=== PATIENT | male | born 1935 | race Caucasian/White ===

== ENCOUNTER 2018-12-14 08:06 | Inpatient (IN) ==
[2018-12-08 15:32] LABS: Basophils # (Auto) 0 K/mcL (0.0-0.3); Basophils % (Auto) 0.3 % (0.0-2.0); Eosinophils # (Auto) 0.2 K/mcL (0.0-0.7); Eosinophils % (Auto) 3.5 % (0.0-7.0); Granulocytes % (Auto) 64.3 % (38.0-78.0); Hematocrit 31.4 % (41.0-55.0); Hemoglobin 10.5 g/dL (13.5-16.5); Lymphocytes # (Auto) 1.3 K/mcL (1.5-4.8); Mean Cell Volume 91.6 fL (80.0-100.0); Mean Corpuscular HGB Conc 33.5 g/dL (31.0-36.0); Mean Platelet Volume 9.3 fL (7.4-10.4); Monocytes # (Auto) 0.5 K/mcL (0.1-0.9); Monocytes % (Auto) 8.9 % (1.0-12.0); Platelet Count 140 K/mcL (140-440); RBC 3.42 M/mcL (4.50-5.90); Red Cell Distribution Width 13.7 % (11.5-14.5); WBC 5.6 K/mcL (4.5-11.0)
[2018-12-08 15:49] LABS: Estimated Average Glucose(eAG) 137 mg/dL; Hemoglobin A1C 6.4 % HGB (4.0-6.0)
[2018-12-08 16:21] LABS: Appearance,Urine HAZY; Bacteria,Urine 0 /hpf (0); Bilirubin,Urine NEG (NEG); Color,Urine AMBER; Culture Indicated,Urine NO; Glucose,Urine (UA) NEGATIVE (NEG); Ketones,Urine NEG (NEG); Leukocyte Esterase,Urine NEG /uL (NEG); Mucus,Urine FEW /hpf (0); Nitrate,Urine NEG (NEG); Protein,Urine 30 mg/dL (NEG); Specific Gravity,Urine 1.026 (1.000-1.035); Urine Blood NEG mg/dL (<0.03); Urine Hyaline Cast 5 /lpf (0-2); Urine RBC 1 /hpf (0-1); Urine Squamous Epithelial Cell < 1 /hpf (0-4); Urine WBC 1 /hpf (0-4); Urobilinogen,Urine NEG (NEG)
[2018-12-08 16:34] LABS: Blood Urea Nitrogen 30 mg/dl (8-23); Calcium 8.8 mg/dl (8.6-10.4); Carbon Dioxide 23 mmol/L (22-30); Chloride 105 mmol/L (96-108); Glomerular Filtration Rate 34; Glucose 152 mg/dL (70-105)
[~2018-12-14 08:06] MED LIST: 0.9 % SODIUM CHLORIDE 9 ML, KETOROLAC 30 MG, ROPIVACAINE HCL/PF 49.5 ML, EPINEPHrine 0.... IJ SCH; CELECOXIB 200 MG CAPSULE PO SCH; PREGABALIN 75 MG CAPSULE PO SCH; ceFAZolin 2 GM in DEXTROSE 5% IN WATER 50 ML IV SCH; oxyCODONE 10 MG TAB.ER.12H PO SCH
[2018-12-14] MEDS ORDERED: ROPIVACAINE HCL/PF 20 ML VIAL IJ ONE (11:00)
[2018-12-14] MEDS ORDERED: SCOPOLAMINE 1 PATCH PATCH TOPICAL PRN (11:00)
[2018-12-14] MEDS ORDERED: TRANEXAMIC ACID 1,000 MG/10 ML VIAL IV ONE ×2 (11:00→12:48)
[2018-12-14] MEDS ORDERED: ONDANSETRON 4 MG/2 ML VIAL IV ONE (11:00)
[2018-12-14] MEDS ORDERED: IPRATROPIUM/ALBUTEROL 3 ML AMPUL.NEB NEB PRN ×2 (11:00→12:47)
[2018-12-14] MEDS ORDERED: KETAMINE 10 MG/ML ML IV ONE (11:00)
[2018-12-14] MEDS ORDERED: ePHEDrine 50 MG/ML AMPUL IV ONE (11:00)
[2018-12-14] MEDS ORDERED: PROPOFOL 200 MG/20 ML VIAL IV ONE (11:00)
[2018-12-14] MEDS ORDERED: LIDOCAINE HCL/PF 100 MG/5 ML SYRINGE IV ONE (11:00)
[2018-12-14] MEDS ORDERED: MIDAZOLAM 2 MG/2 ML VIAL IV ONE (11:00)
[2018-12-14] MEDS ORDERED: BENZOCAINE/MENTHOL 1 LOZENGE PO PRN ×2 (12:47→12:48)
[2018-12-14] MEDS ORDERED: ONDANSETRON 4 MG/2 ML VIAL IV PRN ×2 (12:47→12:48)
[2018-12-14] MEDS ORDERED: NALOXONE HCL 0.4 MG/ML VIAL IV PRN (12:47)
[2018-12-14] MEDS ORDERED: FLUMAZENIL 0.1 MG/ML ML IV PRN (12:47)
[2018-12-14] MEDS ORDERED: LACTATED RINGERS 250 ML IV PRN (12:47)
[2018-12-14] MEDS ORDERED: METHOCARBAMOL 1,000 MG/10 ML VIAL IV PRN (12:47)
[2018-12-14] MEDS ORDERED: ACETAMINOPHEN 1,000 MG/100 ML BOTTLE IV ONE (12:47)
[2018-12-14] MEDS ORDERED: fentaNYL 100 MCG/2 ML VIAL IV PRN (12:47)
[2018-12-14] MEDS ORDERED: MAGNESIUM HYDROXIDE 30 ML ORAL.SUSP PO PRN (12:48)
[2018-12-14] MEDS ORDERED: POLYETHYLENE GLYCOL 3350 17 GM PACKET PO PRN (12:48)
[2018-12-14] MEDS ORDERED: oxyCODONE/APAP 5/325MG TABLET PO PRN (12:48)
[2018-12-14] MEDS ORDERED: FLEETS ADULT ENEMA PR PRN (12:48)
[2018-12-14] MEDS ORDERED: BISACODYL 10 MG SUPP.RECT PR PRN (12:48)
--- NOTE | 2018-12-14 12:48 | Brief Operative Note ---
Date of procedure: 12/14/18 Pre-op diagnosis: Right knee severe post traumatic osteoarthritis Post-op diagnosis: same Procedure: Right robotic assisted total knee arthroplasty Grafts/Implants: Yes (Charles Triathlon PS5 femur, 5 tibia, 11mm insert, 27 patella) Anesthesia: spinal, GLMA Findings: severe arthritis and osteopenia Complications: none Surgeon: Mj Madera Development Director: Ryan Croft Estimated blood loss (cc): 30 Specimens Removed/Pathology: none sent Condition: stable Disposition: PACU
[2018-12-14] MEDS ORDERED: DEXTROSE 31 GM ORAL.SUSP PO PRN (12:52)
[2018-12-14] MEDS ORDERED: DEXTROSE 50% 50 ML VIAL IV PRN (12:52)
[2018-12-14] MEDS ORDERED: LACTATED RINGERS 1,000 ML IV SCH (13:00)
[2018-12-14] MEDS ORDERED: ceFAZolin 1 GM VIAL IV SCH (13:00)
[2018-12-14] MEDS ORDERED: LEUPROLIDE ACETATE 22.5 MG IM SCH (13:00)
--- NOTE | 2018-12-14 13:37 | XRay Report ---
CLINICAL INFORMATION: Post-op total knee COMPARISON: None. FINDINGS: Tibiofemoral prostheses is anatomically aligned. Only the upper pole remnant of the patella appreciated which appears diminutive. It is presumably partially surgically resected. Marked periarticular soft tissue tissue swelling in the anterior region. IMPRESSION: Tibiofemoral knee prosthesis is anatomically aligned. Only superior pole patellar remnant remaining - presumably partially surgically resected. Moderate periarticular anterior soft tissue swelling noted Interpreted and Authenticated by: Prashant Morrison 12/14/18
--- NOTE | 2018-12-14 13:54 | Operative Note ---
DATE OF OPERATION: 12/14/2018 PREOPERATIVE DIAGNOSIS: Right knee posttraumatic severe osteoarthritis. POSTOPERATIVE DIAGNOSIS: Right knee posttraumatic severe osteoarthritis. PROCEDURE PERFORMED: Right robotic-assisted total knee arthroplasty placing a [place] Triathlon size 5 posterior stabilized femoral component, size 5 tibial baseplate, an 11 mm X3 tibial insert with a 27 mm patellar button. SURGEON: Mj Madera M.D. NEEDLE MOLDER: Dm Croft PA-C. The PA's assistance was required for the safe and efficient completion of the entire case. This provider's expertise and technical skill were required throughout the case. The PA assisted with preoperative coordination, intraoperative retraction, wound closure, dressing and splint application, as well as postoperative documentation and care coordination. ANESTHESIA: Spinal plus general. DRAINS: None. SPECIMENS: Bone cuts which were discarded. BLOOD LOSS: 30 mL. COMPLICATIONS: None. POSTOPERATIVE CONDITION: Stable. INDICATIONS FOR SURGERY: This is an 83-year-old male who, when he was a teenager, shattered his patella. He had a partial patellectomy and has had gradual progressive worsening knee pain over the past few years. Radiographs showed severe arthritis and a very small patella. FINDINGS AT SURGERY: He had severe multi-compartment osteoarthritis with a very small patella. Post implantation showed satisfactory stability, range of motion and patellar tracking. PROCEDURE IN DETAIL: The patient had been seen preoperatively. Informed consent had been obtained after discussion of risks and benefits of surgery. Risks including, but not limited to, bleeding, possibly requiring transfusion; infection, possibly requiring implant removal and prolonged IV antibiotics; injury to nerves, blood vessels, other surrounding structures; anesthetic risks; incomplete or no resolution of symptoms; stiffness; swelling; pain; instability; weakness; DVT and pulmonary embolus risks; and the possibility of needing further revision joint surgery. He understood and wished to proceed. Correct operative site was marked and then patient was given spinal anesthesia. He was then taken to the operating room and LMA general given. The right lower extremity was carefully prepped and draped in normal sterile fashion, and a time-out was performed verifying patient name, operative site, and plan. His prior incision was somewhat Z-shaped coming down the medial side of the femur, crossing transversely over the patella and then extending vertically down over the lateral side of the proximal tibia. This incision did not look appropriate to use for the total knee. We did carlee it out and made sure that there was more than a 3 cm skin bridge distally in that we crossed the incision at a 90 degree angle. Ioban was used to cover the skin and then midline incision was made with scalpel through skin and subcutaneous tissue. Irrisept was irrigated. Medial parapatellar arthrotomy made. There were large amounts of deposits, either corticosteroid injection or pseudogout. We did a subperiosteal exposure of the anterior medial tibia. Anterior horns of the menisci were removed and fat pad was excised. ACL was transected. We then placed our femoral and tibial checkpoints. At this point we noted very severe osteopenia. The patella was measured and prepared. A 27 patella did have all three pegs within bone with just some minimal overhang superior inferiorly. We went ahead and placed our cut protector and then went ahead and made two incisions over the tibia and two over the femur. Bicortical pins were placed and the arrays were connected. We checked our hip center of rotation. The green probe was used to identify medial and lateral malleoli and then double-checks of the femoral and tibial check points. Blue probe was used to do our mapping and then rongeur was used to remove osteophytes. We then checked our flexion-extension gaps. We did have difficulty getting them to match due to his anatomy. We were able to get within 1 mm. We had 18 medially in flexion and extension and 17 laterally in flexion and 19 in extension. Patellar tracking did not allow us to internally rotate the implant to match the flexion gap. Once we made our choice on alignment, we then used the robotic arm to do our bone cuts. Tibia was subluxed forward and sized to a 5, which was externally rotated as bone coverage would allow. We pinned the baseplate into place and then used a boss reamer and keel punch to prepare. The keeled tibial trial was placed and the femur was elevated. Curved osteotome was used and then a curved curet to remove posterior osteophytes. We placed the box cutting jig as lateral as bone coverage would allow, pinned this into place and used the patellar saw to cut our box and then the chisel to finish it. We went ahead and removed this and placed the femoral trial. A 9 insert was placed and was popped in fairly easily. The knee was taken into extension. We then prepared the patella drilling our holes. The 27 only fit right in the middle so that is where we drilled the holes. We then checked our tracking, and it seemed to track reasonably well, so we removed trial implants. Definitive implants were opened except for the tibial insert. Irrisept was irrigated, after a minute we pulse lavaged with saline, and then the CO2 gun was used to clean and dry the cancellous bone surfaces. Antibiotic cement had been mixed. We then cemented the tibia. Excess cement removed. We cemented the femur and excess cement removed. A 9 insert trial was placed. The knee was taken into extension. Excess cement removed. We then cemented the patellar button. While cement was hardening, we removed our checkpoints and removed our arrays. The joint was filled with Irrisept and then we injected pain cocktail into the pericapsular and subcutaneous tissues. After cement had fully hardened, we flexed the knee up and used an osteotome to remove any excess cement. Due to the 9 insert sliding in relatively easily, we opened an 11 insert. We injected pain cocktail in the posterior capsule after removing the trial insert. We irrigated Irrisept onto the tray and then impacted the 11 without too much difficulty. We then placed the knee in extension. The joint was filled with Irrisept, after a minute pulse lavaged with saline. The knee was then placed in about 45 degrees of flexion. Interrupted #2 FiberWire [id number] were used around the superior quadrant of the patella, interrupted #1 Vicryl [id number] where the inferior quadrant would have been, and then a running #1 Vicryl for patellar tendon and quad tendon. Final Irrisept irrigation was done, after a minute final pulse lavage, and then 2-0 Monocryl was used for subcutaneous and vanessa for skin. Xeroform and sterile dressing were applied. Tourniquet was released. The patient was awakened, extubated, and transferred to recovery in stable condition. AYM:sindhu Job ID: [id number] Doc ID: [id number] Mj Madera MD
[2018-12-14] MEDS: 0.9 % SODIUM CHLORIDE 10 ML SYRINGE IV SCH ×2 (17:01→20:43)
[2018-12-14] MEDS: 0.9 % SODIUM CHLORIDE 1,000 ML IV SCH (17:07)
[2018-12-14] MEDS ORDERED: INSULIN LISPRO 1 UNIT/0.01 ML UNIT SQ SCH (17:30)
[2018-12-14] MEDS: KETOROLAC 15 MG/ML VIAL IV SCH (18:05)
[2018-12-14] MEDS: INSULIN LISPRO 1 UNIT/0.01 ML UNIT SQ SCH ×2 (18:06→20:42)
[2018-12-14] MEDS ORDERED: ceFAZolin 1 GM VIAL ONE (19:00)
[2018-12-14] MEDS: ceFAZolin 1 GM VIAL IV SCH (19:06)
[2018-12-14] MEDS: DOCUSATE SODIUM 100 MG CAPSULE PO SCH (20:43)
[2018-12-14] MEDS: ASPIRIN 81 MG TAB.CHEW PO SCH (20:43)
[2018-12-14] MEDS ORDERED: SENNOSIDES 1 TABLET PO SCH (21:00)
[2018-12-14] MEDS ORDERED: INSULIN GLARGINE, HUMAN 1 UNIT/0.01 ML SQ SCH (21:00)
[2018-12-15] MEDS: KETOROLAC 15 MG/ML VIAL IV SCH ×2 (00:08→06:02)
[2018-12-15] MEDS: 0.9 % SODIUM CHLORIDE 1,000 ML IV SCH ×2 (02:23→09:45)
[2018-12-15] MEDS: ceFAZolin 1 GM VIAL IV SCH (02:52)
[2018-12-15] MEDS: 0.9 % SODIUM CHLORIDE 10 ML SYRINGE IV SCH (06:02)
[2018-12-15 06:22] LABS: INR 1.2 (0.9-1.1); Prothrombin Time 15.4 sec (11.9-14.5)
[2018-12-15 06:30] LABS: Hematocrit 25.2 % (41.0-55.0); Hemoglobin 8.3 g/dL (13.5-16.5)
[2018-12-15] MEDS ORDERED: LEVOTHYROXINE 50 MCG TABLET PO SCH (07:30)
[2018-12-15] MEDS ORDERED: OMEPRAZOLE 20 MG CAPSULE PO SCH (07:30)
--- NOTE | 2018-12-15 07:41 | Discharge Summary ---
Providers - Providers Patient information: Note initiated : 12/15/18 at 7:39 am Service Date, if different from initiated Date: [] Patient: Tony Lemus 83 y/o M admitted on 12/14/18 for Right Robotic Total Knee Arthroplasty. Chief Complaint: [] Discharge date: 12/15/18 Hospitalization Hospital course: Pt was admitted for a R TKA. Pt underwent the procedure on the day of admission. Pt spent 1 night on the floor for IV pain meds, IV abx and PT. Pt discharged on post-op day 1. Will f/u in 2 weeks. Will take ASA 81mg bid for 2 weeks for DVT prophylaxis. Discharge diagnosis: R knee OA Exam - Exam Clean and dry: Yes Weight bearing status: as tolerated Ortho Discharge - TKA - Patient Instructions Diet: Regular Diet Activity: activity as tolerated Total Knee Protocol: For Total Knee: Start ROM MARIANELA with stationary bike or rocking chair. Work on gaining full extension of knee. Posterior dislocation precautions provided. Hip abductor strengthening and gait training instructions provided. Apply Cryocuff as instructed. Dressing Care: May shower in 2 days - Follow Up Plan Follow Up Appointments: Ryan Croft PA-C [Physician Mathematical Engineer] - 12/29/18 2:20 pm Disposition: Home, Self-Care Prognosis: Good Rehab Potential: Good Overall status at discharge: patient is progressing back to baseline - Orders For Discharge Prescriptions: Aspirin 81 mg PO BID #30 tab.chew oxyCODONE/APAP [Percocet 5-325 mg] 1 - 2 tab PO Q4HP PRN #75 tab PRN Reason: Pain Level 3-6 Pending Studies Resuscitation Status Full Code Diet Consistent Carbohydrate Diet Start WedDec 14 1250 Aspirin (Aspirin) 81 mg PO BID [facility] Last Admin: 12/14/18 20:43 Dose: 81 mg Documented by: MARIAELENA Diagnostic Test (Pha) (Accu-Chek) 1 each FS ACHS [facility] Last Admin: 12/14/18 20:42 Dose: 1 each Documented by: Admin: 12/14/18 17:36 Dose: 1 each Documented by: SHARONDA Docusate Sodium (Colace) 100 mg PO BID [facility] Last Admin: 12/14/18 20:43 Dose: 100 mg Documented by: MARIAELENA Sodium Chloride (Sodium Chloride 0.9%) 1,000 mls @ 100 mls/hr IV .Q10H [facility] Last Admin: 12/15/18 02:23 Dose: 100 mls/hr Documented by: Infusion: 12/15/18 02:23 Dose: 100 mls/hr Documented by: Admin: 12/14/18 17:07 Dose: 100 mls/hr Documented by: SHARONDA Insulin Glargine (Lantus) 15 unit SQ [facility] Last Admin: 12/14/18 20:42 Dose: 15 units Documented by: MARIAELENA Insulin Human Lispro (Humalog) 0 unit SQ [facility]; Protocol Last Admin: 12/14/18 20:42 Dose: 10 units Documented by: Admin: 12/14/18 18:06 Dose: 8 units Documented by: SHARONDA Ketorolac Tromethamine (Toradol) 15 mg IV Q6 [facility] Stop: 12/16/18 12:01 Last Admin: 12/15/18 06:02 Dose: 15 mg Documented by: Admin: 12/15/18 00:08 Dose: 15 mg Documented by: Admin: 12/14/18 18:05 Dose: 15 mg Documented by: SHARONDA Oxycodone/Acetaminophen (Percocet 5-325 Mg) 0 tab PO Q4HP PRN PRN Reason: PAIN LEVEL 3-6 Last Admin: 12/15/18 03:39 Dose: 1 tab Documented by: MARIAELENA Senna (Senokot) 2 tab PO [facility] Last Admin: 12/14/18 20:43 Dose: 2 tab Documented by: MARIAELENA Sodium Chloride (Saline Flush) 10 ml IV Q8 [facility] Last Admin: 12/15/18 06:02 Dose: Not Given Documented by: Admin: 12/14/18 20:43 Dose: Not Given Documented by: Admin: 12/14/18 17:01 Dose: Not Given Documented by: SHARONDA Shift Summary 12/15/18 03:45 Shift Summary by Ricky Gilliam Pt has been pleasantly confused all shift - oriented to self only. He has dozed on & off a few times - no real sleep. Up AMB to & from BR - gait mod stable w/ CGA & FWW. He is voiding sm amts frequently - PVR scan 18ml & 0ml - no further scans required. Magno wrap RT knee - C,D,I. Knee pain has been fairly well controlled w/ scheduled IV Toradol. Perc 5 (1) PO given @ 0335. Cryo-cuff on & off through the shift. NS infusing @ 100ml/hr to his LT wrist. VS - WNL on R.A.. HS blood sugar was 131 - coverage & scheduled Lantus given. Pt is calm, pleasant, & cooperative - however he is very confused. Bed alarm active. Initialized on 12/15/18 03:45 - END OF NOTE
[2018-12-15] MEDS: INSULIN LISPRO 1 UNIT/0.01 ML UNIT SQ SCH (08:18)
[2018-12-15] MEDS ORDERED: POLYETHYLENE GLYCOL 3350 17 GM PACKET PO SCH (09:00)
[2018-12-15] MEDS ORDERED: DONEPEZIL 10 MG TABLET PO SCH (09:00)
[2018-12-15] MEDS ORDERED: ATORVASTATIN 20 MG TABLET PO SCH (09:00)
[2018-12-15] MEDS ORDERED: TAMSULOSIN 0.4 MG CAPSULE PO SCH (09:00)
[2018-12-15] MEDS ORDERED: INSULIN GLARGINE, HUMAN 1 UNIT/0.01 ML SQ SCH (09:00)
[2018-12-15] MEDS ORDERED: LOSARTAN 25 MG TABLET PO SCH (09:00)
[2018-12-15] MEDS ORDERED: METOPROLOL SUCCINATE 25 MG TAB.XL.24H PO SCH (09:00)
[2018-12-15] MEDS ORDERED: FINASTERIDE 5 MG TABLET PO SCH (09:00)
[2018-12-15] MEDS ORDERED: MULTIVIT,THER IRON,CA,FA & MIN 1 TABLET PO SCH (09:00)
[2018-12-15] MEDS ORDERED: MEMANTINE 10 MG TABLET PO SCH (09:00)
[2018-12-15] MEDS ORDERED: PREGABALIN 75 MG CAPSULE PO SCH (09:00)
[2018-12-15] MEDS: DOCUSATE SODIUM 100 MG CAPSULE PO SCH (09:41)
[2018-12-15] MEDS: ASPIRIN 81 MG TAB.CHEW PO SCH (09:42)
== END 2018-12-15 11:55 | disposition home or self-care (01) | DRG 470 ==
LOC: MEDSUR 08:06
PROVIDERS: ADMIT Orthopaedic Surgery; ATTEND Orthopaedic Surgery